=== PATIENT | male | born 1950 | race Caucasian/White ===

== ENCOUNTER → 2017-08-04 | Outpatient (CLI) | payer OTHER ==
[2017-08-04 15:35] LABS: EOSINOPHILS % (AUTO) 3.4 % (0.0-8.0); HEMATOCRIT 41.4 % (42-54); LYMPHOCYTES % (AUTO) 22.4 % (21.0-51.0); MEAN CORPUSCULAR HEMOGLOBIN 30.5 pg (27.0-33.0); MEAN CORPUSCULAR HGB CONC 33.9 g/dL (32.0-36.0); MEAN CORPUSCULAR VOLUME 89.9 fL (79-99); MONOCYTES % (AUTO) 7.4 % (3.0-13.0); NEUTROPHILS % (AUTO) 65.8 % (40.0-77.0); PLATELET COUNT (AUTO) 282 K/uL (130-400); RED BLOOD CELL COUNT(AUTO) 4.61 MIL/uL (4.50-6.20); RED CELL DISTRIBUTION WIDTH 13.7 % (11.0-15.5); WHITE BLOOD COUNT (AUTO) 6.9 K/uL (4.8-10.8)
[2017-08-04 15:50] LABS: INR 0.92 (0.85-1.15); PARTIAL THROMBOPLASTIN TIME 27.8 SEC (26.3-35.5); PROTHROMBIN TIME 9.7 SEC (9.6-11.6)
[2017-08-04 15:52] LABS: ALBUMIN 3.5 g/dL (3.5-5.0); BILIRUBIN,TOTAL 0.3 mg/dL (0.2-1.0); CREATININE 1.1 mg/dL (0.5-1.5); POTASSIUM 4.3 mmol/L (3.5-5.1)
== END | disposition home or self-care (01) ==
LOC: RAH 10:00
PROVIDERS: ATTEND Internal Medicine
DX: Z01.818 Encounter for other preprocedural examination (principal); M16.11 Unilateral primary osteoarthritis, right hip
CPT/HCPCS: 36415; 71046; 80053; 85025; 85610; 85730

== ENCOUNTER → 2019-03-22 | Outpatient (CLI) | payer OTHER | END | disposition home or self-care (01) | LOC: RAH 13:32 | PROVIDERS: ATTEND Internal Medicine | DX: S01.81XA Laceration without foreign body of other part of head, initial encounter (principal); T79.7XXA Traumatic subcutaneous emphysema, initial encounter; J34.1 Cyst and mucocele of nose and nasal sinus; M79.89 Other specified soft tissue disorders; X58.XXXA Exposure to other specified factors, initial encounter; Y93.89 Activity, other specified; Y92.89 Other specified places as the place of occurrence of the external cause; Y99.8 Other external cause status | CPT/HCPCS: 70450; 70486 ==

== ENCOUNTER → 2023-12-11 | Outpatient (CLI) | payer OTHER ==
[~2023-12-11] MED LIST: IOHEXOL 350 MG/ML 100ML INFUS..BTL IV ONE
== END | disposition home or self-care (01) ==
LOC: RAH 08:50
PROVIDERS: ATTEND Internal Medicine
DX: J44.9 Chronic obstructive pulmonary disease, unspecified (principal); I25.10 Atherosclerotic heart disease of native coronary artery without angina pectoris; R63.4 Abnormal weight loss; M47.815 Spondylosis without myelopathy or radiculopathy, thoracolumbar region
CPT/HCPCS: 71270; 74178; Q9967

== ENCOUNTER → 2024-02-12 | Outpatient (CLI) | payer OTHER ==
[2024-02-12 13:04] LABS: ALBUMIN 3.6 g/dL (3.5-5.0); BILIRUBIN,TOTAL 0.6 mg/dL (0.2-1.0); POTASSIUM 4.4 mmol/L (3.5-5.1); TOTAL PROTEIN, SERUM 6.7 g/dL (6.0-8.3)
[2024-02-12 13:18] LABS: HEMOGLOBIN A1C 5.4 % (4.0-6.0)
== END | disposition home or self-care (01) ==
LOC: LAB 10:11
PROVIDERS: ATTEND Student in an Organized Health Care Education/Training Program
DX: I11.9 Hypertensive heart disease without heart failure (principal); E78.5 Hyperlipidemia, unspecified; I25.83 Coronary atherosclerosis due to lipid rich plaque; I65.21 Occlusion and stenosis of right carotid artery; Z79.899 Other long term (current) drug therapy
CPT/HCPCS: 36415; 80053; 80061; 83036

== ENCOUNTER → 2024-02-13 | Outpatient (CLI) | payer OTHER | END | disposition home or self-care (01) | LOC: SHCH 14:10 | PROVIDERS: ATTEND Student in an Organized Health Care Education/Training Program | DX: I25.10 Atherosclerotic heart disease of native coronary artery without angina pectoris (principal) | CPT/HCPCS: 93306 ==

== ENCOUNTER → 2024-04-05 | Outpatient (CLI) | payer OTHER ==
[2024-04-05 12:09] LABS: ALBUMIN 3.7 g/dL (3.5-5.0); BILIRUBIN,TOTAL 0.6 mg/dL (0.2-1.0); CREATININE 1.1 mg/dL (0.5-1.3); POTASSIUM 4.2 mmol/L (3.5-5.1); TOTAL PROTEIN, SERUM 6.9 g/dL (6.0-8.3)
[2024-04-05 12:16] LABS: HEMOGLOBIN A1C 5.5 % (4.0-6.0)
== END | disposition home or self-care (01) ==
LOC: LAB 10:00
PROVIDERS: ATTEND Student in an Organized Health Care Education/Training Program
DX: I11.9 Hypertensive heart disease without heart failure (principal); E78.5 Hyperlipidemia, unspecified; Z79.899 Other long term (current) drug therapy
CPT/HCPCS: 36415; 80053; 80061; 83036

== ENCOUNTER → 2024-04-12 | Outpatient (CLI) | payer OTHER ==
[~2024-04-12] MED LIST changes: +metoPROLOL tartRATE 1 MG/ML 5ML VIAL IV ONE
--- NOTE | 2024-04-12 13:10 | HMCIMG ---
CT CARDIAC ANGIO W/CONT. CCTA HISTORY: Atherosclerosis COMPARISON: None TECHNIQUE: Multiple sequential axial images of the chest were obtained along with the CT angiogram of the chest study. Patient was given 100 cc of Omnipaque through intravenous route. FINDINGS: There is no evidence of pulmonary nodule or parenchymal disease. No pleural effusion or pericardial effusion is seen. There is no evidence of pneumothorax. There are normal size mediastinal and hilar lymph nodes. The heart is not enlarged. Degenerative changes of the thoracolumbar spine are present. IMPRESSION: 1. No evidence of pulmonary nodule or effusion is seen. Please see CT angiogram report of coronary arteries.
--- NOTE | 2024-04-17 18:03 | CARDIOLOGY ---
RAD REPORT: CORNARY CT ANGIO RADIOLOGY REPORT: CORONARY CT ANGIOGRAPHY DATE: Apr 17, 2024 QUALITY: Excellent CLINICAL HISTORY AND INDICATION: [ coronary calcifications ] TECHNIQUE: After obtaining a preliminary upper extremity surgeon image, contrast imaging performed on an [employer] [id number] scanner. A dedicated, limited window, coronary imaging protocol was used, with single breath-hold, retrospective ECG gating, and automated arrhythmia rejection. 100 cc of low osmolar contrast agent: Omnipaque 350 was delivered via a 18-gauge IV catheter in the right antecubital fossa, using a power injector and followed by 60 cc of normal saline bolus as a chaser. Collimated images were reformatted at 0.5 mm intervals, and sent to an offline independent workstation for interpretation, using 3D anatomic reconstructions: Curved multiplanar reconstructions, maximum intensity projections, and multiplanar imaging. 10 mg IV metoprolol was administered prior to scanning. 0.8 mg SL nitroglycerin was given. CORONARY ARTERY DESCRIPTIONS: The coronary arteries arise in normal position. Left main coronary artery: Normal caliber vessel that bifurcates into the LAD and LCx. No stenosis. Left anterior descending coronary artery: Normal caliber vessel and gives rise to diagonal and septal branches. There is mixed calcified and noncalcified plaque in the proximal LAD with 30-40% stenosis. There is calcified plaque in the ostial D1 with 20-30% stenosis. Left circumflex coronary artery: Normal caliber, nondominant and gives rise to two large OM branches. No stenosis. Right coronary artery: Large, dominant vessel giving rise to the PL and PDA branches. No stenosis. CAD-RADs: 2, mild non-obstructive CAD. Thoracic Aorta: Minimal calcifications. Normal diameter. Carola Macedo MD Cardiovascular Disease [facility] CAROLA MACEDO MD Apr 17, 2024 18:03
== END | disposition home or self-care (01) ==
LOC: RAH 11:15
PROVIDERS: ATTEND Student in an Organized Health Care Education/Training Program
DX: I65.21 Occlusion and stenosis of right carotid artery (principal); I25.83 Coronary atherosclerosis due to lipid rich plaque; M47.815 Spondylosis without myelopathy or radiculopathy, thoracolumbar region
CPT/HCPCS: 75574; J3490; Q9967